=== PATIENT | female | born 1950 | race Caucasian/White ===

== ENCOUNTER 2024-09-07 07:43 | Day surgery (SDC) | payer MEDICARE, OTHER ==
[2024-09-07] MEDS ORDERED: Depo-Medrol 40 MG/ML IM ONE (07:44)
[2024-09-07] MEDS ORDERED: BUPIVACAINE 0.5% VIAL IJ ONE (07:44)
[2024-09-07] MEDS ORDERED: DIPRIVAN 200 MG/20 ML IV ONE (09:28)
[2024-09-07] MEDS ORDERED: Lactated Ringers 1,000 ML IV ONE (09:40)
--- NOTE | 2024-09-07 11:38 | XRAY ---
Indication: Right SI joint and right greater trochanter bursa injection. Intraoperative fluoroscopy provided for 30 seconds. 3 digital spot images obtained prone submitted for interpretation demonstrates posterior needle tip projecting over right SI joint. Second needle tip lateral to right greater trochanter. Small amount of contrast injected for both needle tip placement. Correlate with intraoperative findings/report.
--- NOTE | 2024-09-07 13:01 | XRAY ---
32 seconds of fluoroscopy was used in surgery for a right greater trochanteric bursa and sacroiliac injection.
== END 2024-09-07 10:15 | disposition home or self-care (01) ==
LOC: SDC-PAIN 07:43
PROVIDERS: ATTEND Psychiatry & Neurology Pain Medicine
DX: M70.61 Trochanteric bursitis, right hip (principal); M46.1 Sacroiliitis, not elsewhere classified; E11.9 Type 2 diabetes mellitus without complications
CPT/HCPCS: 20610; 27096; 73501; 77002; 82947; 99100; J2704; Q9966; G0260

== ENCOUNTER 2024-11-09 08:32 | Day surgery (SDC) | payer MEDICARE, OTHER ==
[2024-11-09] MEDS ORDERED: Decadron 4 MG INJ IV ONE (08:33)
[2024-11-09] MEDS ORDERED: Sodium Chloride 0.9(Preservative Free) 10 ML IJ ONE (08:33)
[2024-11-09] MEDS ORDERED: DIPRIVAN 200 MG/20 ML IV ONE (09:28)
--- NOTE | 2024-11-09 11:03 | XRAY ---
Indication: Right L4-S1 transforaminal CRISTA. Intraoperative fluoroscopy provided for 22 seconds. 4 digital spot image submitted for interpretation demonstrates posterior needle tips projecting over expected right L4 and L5 nerve roots. Small amount of contrast injected for needle tip placement.. Correlate with intraoperative findings/report.
--- NOTE | 2024-11-09 12:15 | XRAY ---
22 seconds of fluoroscopy was used in surgery for a right L4-S1 transforaminal CRISTA.
== END 2024-11-09 10:00 | disposition home or self-care (01) ==
LOC: SDC-PAIN 08:32
PROVIDERS: ATTEND Psychiatry & Neurology Pain Medicine
DX: M54.16 Radiculopathy, lumbar region (principal); E11.9 Type 2 diabetes mellitus without complications
CPT/HCPCS: 64483; 64484; 72100; 77003; 82947; J1100; J2704; Q9966